=== PATIENT | male | born 1965 | race Caucasian/White ===

== ENCOUNTER → 2017-03-12 | Outpatient (CLI) | payer OTHER ==
[2017-03-12 08:33] LABS: Direct HDL 48 mg/dL (>40); TRIGLYCERIDES 159 mg/dL (<150)
[2017-03-12 08:43] LABS: DIRECT LDL 78 mg/dL (<100)
[2017-03-12 08:48] LABS: VLDL CHOLESTEROL 31.8 mg/dL (10-31)
== END ==
LOC: CCC 07:05
DX: E78.00 Pure hypercholesterolemia, unspecified (principal)
CPT/HCPCS: 36415; 80061

== ENCOUNTER → 2018-01-22 | Outpatient (CLI) | payer MEDICARE, MEDICAID ==
--- NOTE | 2018-01-22 10:52 | RADIOLOGY REPORT (SQ) ---
EXAM DESCRIPTION: LUMBAR SPINE COMPLETE COMPLETED DATE/TIME: 01/22/2018 10:37 am REASON FOR STUDY: STRAIN OF MUSCLE, FASCIA AND TENDON OF LOWER BACK, INIT S39.012A STRAIN OF MUSCLE , FASCIA AND TENDON OF LOWER BACK, COMPARISON: None. NUMBER OF VIEWS: Five views including obliques. TECHNIQUE: AP, lateral, oblique, and sacral radiographic images acquired of the lumbar spine. LIMITATIONS: None. FINDINGS: MINERALIZATION: Normal. SEGMENTATION: Normal. No transitional anatomy. ALIGNMENT: Normal. VERTEBRAE: Maintained height. No fracture or worrisome bone lesion. DISCS: Preserved height. No significant osteophytes or end plate irregularity. POSTERIOR ELEMENTS: Pedicles and facets are intact. No pars defect or posterior arch defects. Mild bilateral facet arthropathy at L4-5 and L5-S1 HARDWARE: None in the spine. PARASPINAL SOFT TISSUES: Normal. PELVIS: Intact as visualized. No fractures or worrisome bone lesions. SI joints intact. OTHER: No other significant finding. IMPRESSION: Mild bilateral facet arthropathy lower lumbar spine TECHNICAL DOCUMENTATION: JOB ID: [id number]- All Rights Reserved Reading location - IP/workstation name: [email or web address]
== END ==
LOC: OD 10:24
PROVIDERS: ATTEND Family Medicine
DX: S39.012A Strain of muscle, fascia and tendon of lower back, initial encounter (principal); X58.XXXA Exposure to other specified factors, initial encounter; Y93.9 Activity, unspecified; Y92.9 Unspecified place or not applicable
CPT/HCPCS: 72110

== ENCOUNTER 2019-05-02 10:02 | Day surgery (SDC) | payer MEDICARE, MEDICAID ==
[~2019-05-02 10:02] MED LIST: PROPOFOL INJ 200 MG/20 ML VIAL IV ONE
[2019-05-02 12:10] VITALS: BP 124/76
--- NOTE | 2019-05-02 12:52 | Operative Report ---
Operative Report DATE OF SURGERY: 05/02/19 Operative Report: The risks, benefits and alternatives of the procedure including the risk of bleeding, perforation requiring surgery have been explained to the patient in detail and informed consent has been obtained. Patient is taken back to the endoscopy suite and placed in the left, lateral decubital position. Timeout was called. Propofol medication is administered. Rectal examination is done which did not reveal any masses, tears or fissures. An Olympus videoscope was introduced into the patient's rectum. The scope was then carefully advanced all the way to the cecum. The cecum was identified by the usual anatomical landmarks including the ileocecal valve as well as the appendiceal office. Photodocumentation is obtained. The scope was then sequentially pulled back via the various segments of the colon including the ascending colon, hepatic flexure, transverse colon, splenic flexure, descending colon and finally into the rectosigmoid portions of the colon. Retroflexion maneuvers performed. PREOPERATIVE DIAGNOSIS: Colorectal cancer screening POSTOPERATIVE DIAGNOSIS: Cecal polyp that is able to be very removed via biopsy forceps. Diverticulosis without any evidence of diverticulitis OPERATION: Colonoscopy with biopsy SURGEON: ANTONIO WISEMAN ANESTHESIA: LMAC TISSUE REMOVED OR ALTERED: As noted above. COMPLICATIONS: None. ESTIMATED BLOOD LOSS: None. INTRAOPERATIVE FINDINGS: As noted above. PROCEDURE: Patient tolerated the procedure well. No immediate postprocedure complications are noted. Patient is discharged in good condition. Discharge date 05/02/2019. Discharge diet: Regular. Discharge activity: Regular. 2 to 3-week follow-up to discuss findings. Patient is instructed to call the office or proceed to the emergency room should there be any further problems or questions. Wait on the pathology. 3 to 5-year surveillance colonoscopy.
== END 2019-05-02 12:10 | disposition home or self-care (01) ==
LOC: END 10:02
PROVIDERS: ATTEND Internal Medicine Gastroenterology
DX: Z12.11 Encounter for screening for malignant neoplasm of colon (principal); D12.0 Benign neoplasm of cecum; K57.30 Diverticulosis of large intestine without perforation or abscess without bleeding; Z80.0 Family history of malignant neoplasm of digestive organs; I10 Essential (primary) hypertension; Z87.891 Personal history of nicotine dependence
CPT/HCPCS: 45380; 88305 ×2; 00811; J2704; 811

== ENCOUNTER → 2020-02-07 | Outpatient (CLI) | payer MEDICAID, MEDICARE ==
--- NOTE | 2020-02-07 15:37 | RADIOLOGY REPORT (SQ) ---
EXAM DESCRIPTION: VENOUS UNILATERAL LOWER IMAGES COMPLETED DATE/TIME: 02/07/2020 3:28 pm REASON FOR STUDY: LLE PAIN R60.0 LOCALIZED EDEMA COMPARISON: None. TECHNIQUE: Dynamic and static blanchard scale and color images acquired of the left leg venous system. Se lected spectral images acquired with additional compression and augmentation maneuvers. The contralat eral common femoral vein and saphenofemoral junction were also imaged. Images stored on PACS. LIMITATIONS: None. FINDINGS: COMMON FEMORAL: Normal phasicity, compression and augmentation. No visualized echogenic ma terial on blanchard scale. No defects on color images. FEMORAL: Normal compression and augmentation. No visualized echogenic material on blanchard scale. No defe cts on color images. POPLITEAL: Normal compression, augmentation. No visualized echogenic material on blanchard scale. No defec ts on color images. CALF VESSELS: Normal compression, augmentation. No visualized echogenic material on blanchard scale. No de fects on color images. GSV and SSV: Normal compression, augmentation. No visualized echogenic material on blanchard scale. No def ects on color images. ANY DEEP VENOUS INSUFFICIENCY: No. ANY EVIDENCE OF POPLITEAL CYST: No. OTHER: No other significant finding. CONTRALATERAL COMMON FEMORAL VEIN AND SAPHENOFEMORAL JUNCTION: Normal phasicity, compression and augmentation. No visualized echogenic material on blanchard scale. No de fects on color images. IMPRESSION: NO EVIDENCE DVT OR SVT IN THE LEFT LEG. TECHNICAL DOCUMENTATION: JOB ID: [id number] 2010 [employer]- All Rights Reserved Reading location - IP/workstation name: [email or web address]
== END ==
LOC: SP 14:30
PROVIDERS: ATTEND Nurse Practitioner Primary Care
DX: R60.0 Localized edema (principal)
CPT/HCPCS: 93971

== ENCOUNTER 2020-08-31 17:16 | Emergency (ER) | payer MEDICARE ==
[2020-08-31 17:23] VITALS: BP 186/87
[2020-08-31] MEDS ORDERED: ONDANSETRON 4 MG TAB.RAPDIS PO ONE (18:20)
--- NOTE | 2020-08-31 18:27 | ER Document Report ---
ED Medical Screen (RME) - General Chief Complaint: Abdominal Pain Stated Complaint: ABDOMINAL PAIN Time Seen by Provider: 08/31/20 18:11 Primary Care Provider: MARK FUENTES FNP-C [Primary Care Provider] - Follow up as needed Mode of Arrival: Ambulatory Information source: Patient Notes: HPI; 55-year-old male past medical history significant for hypertension, A. fib, COPD, fatty liver, gallbladder disease presents to the emergency room complaining of sudden onset of right upper quadrant sharp stabbing pain that started shortly after having lunch. Complains of nausea but no vomiting. No fevers. No diarrhea. No COVID-19 exposure. PE: Alert and oriented x3. Lungs: Clear to auscultation without rales, rhonchi, wheezes. Heart: Irregular rate and rhythm without murmurs, rubs, gallops. I have greeted and performed a rapid initial assessment of this patient. A comprehensive ED assessment and evaluation of the patient, analysis of test results and completion of the medical decision making process will be conducted by additional ED providers. I have specifically instructed the patient or family members with the patient to immediately return to any nursing staff should anything change in the patient's condition or with their chief complaint. TRAVEL OUTSIDE OF THE [place] IN LAST 30 DAYS: No - Related Data Allergies/Adverse Reactions: No Known Allergies Allergy (Verified 05/02/19 09:27) Past Medical History - Past Medical History Cardiac Medical History: Reports: Hx Hypertension Denies: Hx Coronary Artery Disease - HIGH CHOL, Hx Heart Attack Pulmonary Medical History: Denies: Hx Asthma, Hx Bronchitis, Hx COPD, Hx Pneumonia Neurological Medical History: Denies: Hx Cerebrovascular Accident, Hx Seizures Musculoskeltal Medical History: Reports Hx Arthritis, Reports Hx Musculoskeletal Deformity, Reports Hx Musculoskeletal Trauma Past Surgical History: Reports: Hx Adenoidectomy, Hx Oral Surgery, Hx Orthopedic Surgery, Hx Tonsillectomy - Immunizations Hx Diphtheria, Pertussis, Tetanus Vaccination: Yes Physical Exam - Vital signs Vitals: Temp Pulse Resp BP Pulse Ox 98.2 F 100 20 186/87 H 96 08/31/20 17:19 08/31/20 17:19 08/31/20 17:19 08/31/20 17:19 08/31/20 17:19 Course - Vital Signs Vital signs: Temp Pulse Resp BP Pulse Ox 98.2 F 100 20 186/87 H 96 08/31/20 17:19 08/31/20 17:19 08/31/20 17:19 08/31/20 17:19 08/31/20 17:19 Doctor's Discharge - Discharge Referrals: MARK FUENTES, TOBACCO DIPPER-C [Primary Care Provider] - Follow up as needed
[2020-08-31 19:02] LABS: APPEARANCE,URINE CLEAR; BILIRUBIN,URINE NEGATIVE (NEGATIVE); COLOR,URINE STRAW; GLUCOSE, URINE NEGATIVE (NEGATIVE); KETONES,URINE NEGATIVE (NEGATIVE); LEUKOCYTE ESTERASE,URINE NEGATIVE (NEGATIVE); NITRITE,URINE NEGATIVE (NEGATIVE); PROTEIN,URINE NEGATIVE (NEGATIVE); URINE SPECIFIC GRAVITY 1.006; UROBILINOGEN,URINE NEGATIVE mg/dL (<2.0)
--- NOTE | 2020-08-31 19:02 | ER Document Report ---
ED GI/ - General Mode of Arrival: Ambulatory TRAVEL OUTSIDE OF THE [place] IN LAST 30 DAYS: No - Related Data Home Medications: see list on chart. <MARK JONES - Last Filed: 08/31/20 20:05> <DARINEL WALLACE - Last Filed: 09/01/20 00:26> - General Chief Complaint: Upper Abdominal Pain Stated Complaint: ABDOMINAL PAIN Time Seen by Provider: 08/31/20 18:11 Primary Care Provider: MARK FUENTES FNP-C [Primary Care Provider] - Follow up as needed CAMILLE COHEN MD [ACTIVE STAFF] - Follow up as needed BROOKE BARNES MD [ACTIVE PROVISIONAL STAFF] - Follow up tomorrow Notes: CHIEF COMPLAINT: Upper abdominal pain after eating HPI: 55-year-old male presenting for upper abdominal discomfort and bloating after eating a meal this afternoon. Discomfort began around 2. Did radiate up into the chest. states that patient had been diagnosed last week with gallbladder sludge and he believes this is causing his symptoms. The have not been able to obtain a surgical referral because they have to see the primary first and they do not have an appointment until September 11. No vomiting. Describes a bloating sensation with nausea ROS: See HPI - all other systems were reviewed and are otherwise negative Constitutional: no fever Eyes: no drainage, no blurred vision ENT: no runny nose, no sore throat Cardiovascular: no chest pain Resp: no SOB, no cough GI: no vomiting, no diarrhea, + abdominal pain, positive nausea : no dysuria Integumentary: no rash Allergy: no hives Musculoskeletal: no extremity pain or swelling Neurological: no numbness/tingling, no weakness MEDICATIONS: I agree with the patient medications as charted by the RN. ALLERGIES: I agree with the allergies as charted by the RN. PAST MEDICAL HISTORY/PAST SURGICAL HISTORY: Reviewed and agree as charted by RN. SOCIAL HISTORY: Reviewed and agree as charted by RN. FAMILY HISTORY: No significant familial comorbid conditions directly related to patient complaint EXAM: Reviewed vital signs as charted by RN. CONSTITUTIONAL: Alert and oriented and responds appropriately to questions. Well-appearing; well-nourished HEAD: Normocephalic; atraumatic EYES: PERRL; Conjunctivae clear, sclerae non-icteric ENT: normal nose; no rhinorrhea; moist mucous membranes; pharynx without lesions noted, no uvula edema or deviation, no tonsillar hypertrophy, phonation normal NECK: Supple without meningismus; non-tender; no cervical lymphadenopathy, no masses CARD: RRR; no murmurs, no clicks, no rubs, no gallops; symmetric distal pulses RESP: Normal chest excursion without splinting or tachypnea; breath sounds clear and equal bilaterally; no wheezes, no rhonchi, no rales, pulse oximetry 97% on room air not hypoxic ABD/GI: Normal bowel sounds; non-distended; soft, mild tenderness in the right upper quadrant region on palpation , no rebound, no guarding; no palpable organomegaly or masses. BACK: The back appears normal and is non-tender to palpation, there is no CVA tenderness EXT: Normal ROM in all joints; non-tender to palpation; no cyanosis, no effusions, no edema SKIN: Normal color for age and race; warm; dry; good turgor; no acute lesions noted NEURO: Moves all extremities equally; Motor and sensory function intact PSYCH: The patient's mood and manner are appropriate. Grooming and personal hygiene are appropriate. MDM: 55-year-old male with epigastric and right upper quadrant abdominal pain following eating lunch today. Complains of bloating sensation with discomfort radiating up from the abdomen into the chest. He has reproducible pain in the right upper quadrant states he had been diagnosed with gallbladder sludge a week ago. His EKG is sinus rhythm with a ventricular rate of 87, NV 184 QT 400 QTC 42. There is a left bundle branch block. He has reproducible abdominal pain this is likely biliary colic. Awaiting lab work and reassessment The patient was evaluated during the global COVID-19 pandemic and that diagnosis was suspected/considered upon their initial presentation. Their evaluation, treatment and testing was consistent with current guidelines for patients who present with complaints or symptoms that may be related to COVID-19 (MARK REINOSO) - Related Data Allergies/Adverse Reactions: No Known Allergies Allergy (Verified 08/31/20 18:37) Past Medical History - General Information source: Patient - Social History Smoking Status: Former Smoker Chew tobacco use (# tins/day): No Frequency of alcohol use: Social Drug Abuse: None Family History: Reviewed & Not Pertinent Patient has homicidal ideation: No - Past Medical History Cardiac Medical History: Reports: Hx Atrial Fibrillation, Hx Hypercholest erolemia, Hx Hypertension Denies: Hx Coronary Artery Disease - HIGH CHOL, Hx Heart Attack Pulmonary Medical History: Denies: Hx Asthma, Hx Bronchitis, Hx COPD, Hx Pneumonia Neurological Medical History: Denies: Hx Cerebrovascular Accident, Hx Seizures GI Medical History: Reports: Hx Gastroesophageal Reflux Disease Musculoskeletal Medical History: Reports Hx Arthritis, Reports Hx Musculoskeletal Deformity, Reports Hx Musculoskeletal Trauma Past Surgical History: Reports: Hx Adenoidectomy, Hx Cardiac Catheterization - 04/26/20 clean, Hx Oral Surgery, Hx Orthopedic Surgery - left knee replacement, 2LACL, Hx Tonsillectomy - Immunizations Hx Diphtheria, Pertussis, Tetanus Vaccination: Yes <MARK JONES - Last Filed: 08/31/20 20:05> Physical Exam - Vital signs Vitals: Temp Pulse Resp BP Pulse Ox 98.2 F 100 20 186/87 H 96 08/31/20 17:19 08/31/20 17:19 08/31/20 17:19 08/31/20 17:19 08/31/20 17:19 Course - Laboratory Results Result Diagrams: 08/31/20 18:30 08/31/20 18:30 <MARK JONES - Last Filed: 08/31/20 20:05> - Laboratory Results Result Diagrams: 08/31/20 18:30 08/31/20 18:30 Critical Laboratory Results Reviewed: No Critical Results - Radiology Results Critical Radiology Results Reviewed: No Critical Results <DARINEL WALLACE - Last Filed: 09/01/20 00:26> - Re-evaluation Re-evalutation: 08/31/20 19:46 Patient is feeling much better. He declines pain medicine in the ER I will send him with a take-home pack. Ultrasound shows cholelithiasis without cholecystitis. Return instructions were discussed. Patient does take Lasix and potassium replacement. He has mild renal insufficiency. He has mild hyperkalemia. He will hold his potassium for the next 2 days. He will increase his fluid intake over the next 2 days. I will give him referral to surgery. I am awaiting a troponin at this time although I suspect that this is likely biliary colic. 08/31/20 20:05 Case was discussed with Dr. Crespo attending. Patient's troponin 0.014, not completely negative although I suspect that patient has biliary colic. I spoke with the patient about this he is willing to stay for second troponin. Report to DADA Casillas who will follow and disposition (MARK JONES) 08/31/20 20:00 Patient sign out given by Mark Lee NP. 3 hour troponin ordered as initial troponin minimally elevated at 0.014. Will await results. Patient informed. 08/31/20 22:30 3 hour troponin increased at 0.039. I consulted my supervising physician, Dr. Grajeda, concerning this patient who recommends I consult cardiology due to left bundle branch block of unknown age and slowly increasing troponins. No prior EKGs on file to compare to. I spoke with the patient and he denies any prior diagnosed of LBBB. His surgical clinical reviewer is Dr. Barnes at [facility] in [place] and he has an appointment in early October. 08/31/20 22:58 I spoke with the surgical clinical reviewer on-call, Dr. Vaughan, who recommends that the patient can follow up outpatient on Thursday, as the patient denies any chest pain and his troponin is barely elevated. 08/31/20 23:[address] Scott who is on-call for [facility]. He recommends admitting the patient for observation but states that a new LBBB without chest pain is not an indication for emergent catherization or further NSTEMI workup. He recommends that cardiology consult on the patient in the morning. 08/31/20 23:23 I spoke with the patient concerning my discussions with both surgical clinical reviewer and the final recommendation for admission for observation. However, patient is declining admission and states he needs to go home to take care of his dogs. Patient will sign out AMA. The patient has chosen to leave the facility against medical advice. The relevant issues have been reviewed and discussed with the patient and family at the bedside. At the time of this assessment there is no indication for involuntary commitment. The patient is alert, oriented, and able to express clearly their reasoning for not wanting to remain in the emergency department for further treatment. The patient is not clinically psychotic, intoxicated, and denies and suicidal ideation. Differential or suspected diagnoses based on medical screening exam: upper abdominal pain, cholelithiasis, left bundle branch block. The patient is aware of the concerning diagnoses and acknowledges understanding of the reasons for the following recommendations: admission for observation with consultation by cardiology in the morning. The following recommendations/services were offered and refused: admission, cardiology consultation The following risks were explained: , permanent disability, loss of function, missed diagnosis and heart attack Clinical impression: Patient is competent to make decisions regarding the medical advice that is being offered. (DARINEL WALLACE) - Vital Signs Vital signs: Temp Pulse Resp BP Pulse Ox 98.2 F 100 20 186/87 H 96 08/31/20 17:19 08/31/20 17:19 08/31/20 17:19 08/31/20 17:19 08/31/20 17:19 - Laboratory Results Laboratory Results Interpreted: 08/31/20 08/31/20 18:30 18:30 RBC 3.66 L Hgb 12.3 L Hct 34.7 L MCH 33.6 H Eos % (Auto) 7.3 H Sodium 134.2 L Potassium 5.2 H Chloride 92 L Carbon Dioxide 37 H BUN 22 H Creatinine 1.54 H Est GFR ( Amer) 57 L Est GFR (MDRD) Non-Af 47 L Glucose 124 H ALT 68 H Alkaline Phosphatase 27 L Discharge <MARK JONES - Last Filed: 08/31/20 20:05> <DARINEL WALLACE - Last Filed: 09/01/20 00:26> - Discharge Clinical Impression: Biliary colic, Renal insufficiency, Hyperkalemia, Left bundle branch block Cholelithiasis Qualifiers: Cholelithiasis location: gallbladder Cholecystitis presence: without cholecystitis Biliary obstruction: without biliary obstruction Qualified Code(s): K80.20 - Calculus of gallbladder without cholecystitis without obstruction Condition: Stable Disposition: AGAINST MEDICAL ADVICE Additional Instructions: Return to the emergency department if you develop chest pain, shortness of breath, fever, or persistent vomiting. Follow up with your surgical clinical reviewer as soon as possible. Referrals: MARK FUENTES, OYSTER FLOATER-C [Primary Care Provider] - Follow up as needed CAMILLE COHEN MD [ACTIVE STAFF] - Follow up as needed BROOKE BARNES MD [ACTIVE PROVISIONAL STAFF] - Follow up tomorrow
[2020-08-31 19:06] LABS: ABSOLUTE EOSINOPHILS # (AUTO) 0.3 10^3/uL (0.0-0.6); ABSOLUTE LYMPHOCYTES (AUTO) 1.4 10^3/uL (0.5-4.7); ABSOLUTE MONOCYTES (AUTO) 0.6 10^3/uL (0.1-1.4); ABSOLUTE NEUT (AUTO) 2.4 10^3/uL (1.7-8.2); BASOPHILS % (AUTO) 0.4 % (0-2); EOSINOPHILS % (AUTO) 7.3 % (0-6); HEMATOCRIT 34.7 % (37.9-51.0); HEMOGLOBIN 12.3 g/dL (13.5-17.0); LYMPHOCYTES % (AUTO) 28.5 % (13-45); MEAN CORPUSCULAR HEMOGLOBIN 33.6 pg (27.0-33.4); MEAN CORPUSCULAR HGB CONC 35.5 g/dL (32.0-36.0); MEAN CORPUSCULAR VOLUME 95 fl (80-97); MONOCYTES % (AUTO) 12.3 % (3-13); PLATELET COUNT 175 10^3/uL (150-450); RED BLOOD COUNT 3.66 10^6/uL (4.35-5.55); RED CELL DISTRIBUTION WIDTH 13.3 % (11.5-14.0); SEGMENTED NEUTROPHILS % (AUTO) 51.5 % (42-78); TOTAL CELLS COUNTED % (AUTO) 100 %; WHITE BLOOD COUNT 4.7 10^3/uL (4.0-10.5)
[2020-08-31 19:29] LABS: ALBUMIN 4.2 g/dL (3.5-5.0); ALKALINE PHOSPHATASE 27 U/L (38-126); ANION GAP 5 (5-19); ASPARTATE AMINO TRANSFERASE 51 U/L (17-59); BILIRUBIN,DIRECT 0.2 mg/dL (0.0-0.4); BILIRUBIN,TOTAL 0.6 mg/dL (0.2-1.3); BLOOD UREA NITROGEN 22 mg/dL (7-20); CALCIUM 9.8 mg/dL (8.4-10.2); CARBON DIOXIDE 37 mmol/L (22-30); CHLORIDE 92 mmol/L (98-107); GLUCOSE 124 mg/dL (75-110); POTASSIUM 5.2 mmol/L (3.6-5.0); TOTAL PROTEIN 7.3 g/dL (6.3-8.2)
--- NOTE | 2020-08-31 19:30 | RADIOLOGY REPORT (SQ) ---
EXAM DESCRIPTION: U/S ABDOMEN LTD W/DOPPLER IMAGES COMPLETED DATE/TIME: 08/31/2020 7:19 pm REASON FOR STUDY: ruq pain COMPARISON: None. TECHNIQUE: Dynamic and static grayscale images acquired of the abdomen and recorded on PACS. Additio nal selected color Doppler and spectral images recorded. LIMITATIONS: Intervening bowel gas precludes evaluation of the pancreas and aorta. FINDINGS: PANCREAS: Not adequately evaluated. LIVER: Hepatic steatosis. No focal mass. No intrahepatic biliary dilatation. LIVER VASCULATURE: Normal directional flow of the main portal vein and hepatic veins. GALLBLADDER: No mural thickening or pericholecystic fluid. Few a tiny nonshadowing gallstones may be present. ULTRASOUND-DETECTED CARDENAS'S SIGN: Not documented. INTRAHEPATIC DUCTS AND COMMON DUCT: CBD and intrahepatic ducts normal caliber. No filling defects. INFERIOR VENA CAVA: Normal flow. AORTA: Not adequately evaluated RIGHT KIDNEY: Normal size. Normal echogenicity. No solid or suspicious masses. No hydronephrosis. No calcifications. PERITONEAL AND RIGHT PLEURAL SPACE: No ascites or effusions. OTHER: No other significant findings. IMPRESSION: Intervening bowel gas precludes adequate evaluation of the pancreas and aorta. Cholelit hiasis without evidence of cholecystitis. Hepatic steatosis. TECHNICAL DOCUMENTATION: JOB ID: [id number] 2010 [employer]- All Rights Reserved Reading location - IP/workstation name: [email or web address]
[2020-08-31] MEDS ORDERED: HYDROCODONE/ACETAMINOPHEN 5-325 MG (6 TAB/ER DISP) PO PRN (19:49)
--- NOTE | 2020-08-31 21:56 | EKG REPORT ---
SEVERITY:- ABNORMAL ECG - SINUS RHYTHM LEFT BUNDLE BRANCH BLOCK : Confirmed by: Saad Moreno MD 31-Aug-2020 21:56:08
== END 2020-08-31 23:55 | disposition left against medical advice (07) ==
LOC: ER 17:16
DX: K80.70 Calculus of gallbladder and bile duct without cholecystitis without obstruction (principal); K76.0 Fatty (change of) liver, not elsewhere classified; I44.7 Left bundle-branch block, unspecified; E87.5 Hyperkalemia; N28.9 Disorder of kidney and ureter, unspecified; R10.811 Right upper quadrant abdominal tenderness; R10.13 Epigastric pain; R10.11 Right upper quadrant pain; R79.89 Other specified abnormal findings of blood chemistry; R11.0 Nausea; I10 Essential (primary) hypertension; Z79.899 Other long term (current) drug therapy; Z87.891 Personal history of nicotine dependence; Z20.828 Contact with and (suspected) exposure to other viral communicable diseases; Z53.29 Procedure and treatment not carried out because of patient's decision for other reasons
CPT/HCPCS: 93005; 99285; 36415; 83690; 85025; 80053; 81001; 84484; 76705; 93976; 93010; A9270 ×2; S0119